=== PATIENT | female | born 1990 | race Caucasian/White ===

== ENCOUNTER 2016-12-13 18:04 | Emergency (ER) | payer OTHER ==
[~2016-12-13] VITALS: Ht 157.5 cm; Wt 66.0 kg
[~2016-12-13 18:04] MED LIST: CLONAZEPAM1 MG PO; GABAPENTIN100 MG PO; GABAPENTIN300 MG PO; JUNEL1 EACH PO; KLONOPIN0.5 M1 PO; MOTRIN600 MG PO; NAPROSYN500 MG PO; ORTHO TRI-CYCL1 EACH PO; PAROXETINE HCL30 MG PO; SEROQUEL100 MG PO; SEROQUEL12.5 MG PO
[2016-12-13] MEDS ORDERED: KEFLEX500 MG PO (20:22)
[2016-12-13 20:51] VITALS: BP 120/86
== END 2016-12-13 20:51 | disposition home or self-care (01) ==
LOC: EME 18:04
DX: S91.312A Laceration without foreign body, left foot, initial encounter (principal); Z23 Encounter for immunization; W25.XXXA Contact with sharp glass, initial encounter; Z88.2 Allergy status to sulfonamides; F17.200 Nicotine dependence, unspecified, uncomplicated
CPT/HCPCS: 99281; 99284

== ENCOUNTER 2017-07-04 14:33 | Emergency (ER) | payer OTHER ==
[~2017-07-04] VITALS: Ht 157.5 cm; Wt 73.4 kg
[~2017-07-04 14:33] MED LIST changes: +KEFLEX500 MG PO
[2017-07-04 14:57] LABS: HEMATOCRIT 42.4 % (36.0-46.0); HEMOGLOBIN 14.6 G/DL (11.9-15.5); MCH 30.4 PG (29.0-34.0); MCHC 34.4 G/DL (30.0-36.0); MCV 88.1 FL (83-99); PLATELET COUNT 295 K/uL (156-360); RBC DIS.WIDTH-CV 13.3 % (11.8-14.6); RBC DIS.WIDTH-SD 43.4 % (39-53); RED BLOOD COUNT 4.81 M/uL (3.80-5.20); WHITE BLOOD COUNT 12.7 K/uL (4.1-10.2)
[2017-07-04 15:20] LABS: QUANTITATIVE HCG 339.9 MIU/ML
[2017-07-04 15:43] LABS: CHLORIDE 110 mEq/L (99-109); POTASSIUM 4.3 mEq/L (3.7-5.4); SODIUM 137 mEq/L (136-147)
[2017-07-04 15:45] LABS: GLUCOSE 96 mg/dL (70-99)
[2017-07-04 15:49] LABS: CREATININE 0.8 mg/dL (0.6-1.3); GFR ESTIMATE (CALCULATED) > 59 mL/min/
[2017-07-04 15:50] LABS: UREA NITROGEN (BUN) 12 mg/dL (9-23)
[2017-07-04 17:09] LABS: APPEARANCE SL.HAZY ((CLEAR)); BILIRUBIN NEGATIVE; BLOOD SMALL; COLOR YELLOW ((YELLOW)); GLUCOSE (STRIP) NEGATIVE; KETONES 5; LEUKOCYTES NEGATIVE; NITRITE NEGATIVE; PROTEIN (STRIP) 30; SPECIFIC GRAVITY 1.036 (1.000-1.030); UROBILINOGEN 0.2 MG/DL (0.2-1.0)
[2017-07-04 17:16] LABS: BACTERIA NONE SEEN /HPF; EPITHELIAL CELLS 1+ /HPF; MUCUS 3+ /LPF; RED BLOOD CELLS 0-5 /HPF (0-5); UCUL ADDED? NO; WHITE BLOOD CELLS 0-5 /HPF (0-5)
[2017-07-04 17:43] VITALS: BP 112/68
== END 2017-07-04 17:49 | disposition home or self-care (01) ==
LOC: EME 14:33
DX: O26.891 Other specified pregnancy related conditions, first trimester (principal); R10.2 Pelvic and perineal pain; O99.331 Smoking (tobacco) complicating pregnancy, first trimester; F17.200 Nicotine dependence, unspecified, uncomplicated; Z88.2 Allergy status to sulfonamides
CPT/HCPCS: 76801; 80048; 80048 91; 81003; 84702; 85027; 99281; 99284

== ENCOUNTER → 2017-12-20 | Outpatient (CLI) | payer OTHER ==
[~2017-12-20] VITALS: Ht 157.5 cm; Wt 75.5 kg
[~2017-12-20] MED LIST changes: +PRENATAL TABLE1 EAC3 PO
[2017-12-20 09:39] VITALS: BP 133/60
== END | disposition home or self-care (01) ==
LOC: IVINF 09:30
DX: Z34.80 Encounter for supervision of other normal pregnancy, unspecified trimester (principal); Z31.82 Encounter for Rh incompatibility status; Z3A.00 Weeks of gestation of pregnancy not specified; Z67.91 Unspecified blood type, Rh negative
CPT/HCPCS: 96372; J2790